=== PATIENT | female | born 1935 | race Caucasian/White ===

== ENCOUNTER 2016-10-13 09:50 | Outpatient (CLI) | payer MEDICARE, OTHER | END 2016-10-13 09:51 | disposition home or self-care (01) | DX: E03.9 Hypothyroidism, unspecified (principal) ==

== ENCOUNTER 2017-06-01 12:54 | Outpatient (CLI) | payer MEDICARE, OTHER ==
--- NOTE | 2017-06-01 13:52 | XRAY Report ---
TWO-VIEW LUMBAR SPINE: 06/01/2017 CLINICAL INDICATION: Back pain. FINDINGS: Frontal and lateral views of the lumbar spine demonstrate degenerative changes, with degen erative retrolisthesis of L1 on L2 by approximately 5 mm. Previous T11 vertebroplasty is noted. The re is no evidence of acute fracture or subluxation. IMPRESSION: DEGENERATIVE CHANGES, WITH DEGENERATIVE RETROLISTHESIS OF L1 ON L2. JOB #: [id number] EXT JOB #:[id number]
== END 2017-06-01 12:55 | disposition home or self-care (01) ==
LOC: DI 12:54
PROVIDERS: ATTEND Family Medicine
DX: M43.16 Spondylolisthesis, lumbar region (principal); Z98.890 Other specified postprocedural states
CPT/HCPCS: 72100

== ENCOUNTER 2017-06-20 08:00 | Outpatient (CLI) | payer MEDICARE, OTHER ==
[2017-06-20 19:57] LABS: THYROID STIMULATING HORMONE 0.32 uIU/mL (0.34-5.60)
== END 2017-06-20 08:01 | disposition home or self-care (01) ==
LOC: LAB.WCP 08:00
PROVIDERS: ATTEND Family Medicine
DX: E03.9 Hypothyroidism, unspecified (principal)
CPT/HCPCS: 36415; 84439; 84443; 84481

== ENCOUNTER 2017-06-23 13:44 | Outpatient (CLI) | payer MEDICARE, OTHER ==
--- NOTE | 2017-06-23 18:02 | MRI Report ---
EXAM: MRI LUMBAR SPINE WITHOUT CONTRAST EXAM DATE: 06/23/2017 03:08 PM. CLINICAL HISTORY: Low back pain for 3 months. Previous kyphoplasty at T11. COMPARISON: X-ray 06/01/2017. TECHNIQUE: Multiplanar, multisequence T1-weighted and fluid-sensitive sequences of the lumbar spine f rom T12 to S1 without contrast. Other: None. FINDINGS: Spinal Cord: The conus terminates at T12-L1. No signal abnormality in the visualized spinal cord. Alignment: 38 degree kyphosis as measured from top of T10 to top of L1. No significant scoliotic curv ature. Bone Marrow: Five rbk-jwk-hclhloe lumbar vertebral bodies are assumed. Severe 80% anterior T11 wedge compression deformity with kyphosis and previous kyphoplasty. Chronic with no marrow edema. Disk Levels/Facets: T10-T11: 0.3 cm T10 anterolisthesis on T11. Posterior superior corner of T11 indents the thecal sac a nd touches the cord with lower normal limit canal diameter. T11-T12: Mild disk narrowing. Mild facet arthropathy. No stenosis. T12-L1: Moderate disk narrowing and mild bulge with anterior osteophytes. Mild bilateral facet arthro natasha. No stenosis. L1-L2: Mild disk bulge. Mild bilateral facet arthropathy. Moderate bilateral foraminal stenoses. L2-L3: Minimal disk bulge. Moderate bilateral facet arthropathy. No stenosis. L3-L4: Minimal disk bulge. Moderate bilateral facet arthropathy with ligamentum flavum thickening. Na rrowing of the posterior lateral margins of the canal but preserved CSF around the nerve roots. Mild bilateral foraminal stenoses. L4-L5: Minimal disk bulge. Moderate bilateral facet arthropathy. No stenosis. Left foraminal/far late ral annular fissure. L5-S1: Disk unremarkable. Mild bilateral facet arthropathy. No stenosis. Musculature: Normal. No edema or fatty atrophy. Other: The visualized pelvic cavity is unremarkable. IMPRESSION: 1. Severe chronic T11 compression deformity with kyphoplasty and mild T10 anterolisthesis, causing lo wer normal limit canal at the T10-T11 disk level. 2. 38 degree kyphosis across the chronic compression fracture. 3. Multilevel degenerative disk disease and facet arthropathy. Comment: The following findings are so common in adults without low back pain that while we report th eir presence, they must be interpreted with caution and in the context of the clinical situation. (Re janey Morelos et al, Spine 2001) Prevalence of findings in patients without low back pain: Disk degeneration (any evidence): 92% Disk desiccation/T2 signal loss: 83% Disk height loss: 56% Disk bulge: 64% Disk protrusion: 32% Annular tear/high intensity zone: 38% [facility] Referring Provider Line: [phone] SITE ID: [id number]
== END 2017-06-23 13:45 | disposition home or self-care (01) ==
LOC: DI 13:44
PROVIDERS: ATTEND Family Medicine
DX: M47.896 Other spondylosis, lumbar region (principal); M51.36 Other intervertebral disc degeneration, lumbar region; M48.54XD Collapsed vertebra, not elsewhere classified, thoracic region, subsequent encounter for fracture with routine healing; M40.294 Other kyphosis, thoracic region; M43.14 Spondylolisthesis, thoracic region
CPT/HCPCS: 72148

== ENCOUNTER 2017-06-30 08:00 | Outpatient (CLI) | payer MEDICARE, OTHER | END 2017-06-30 08:01 | disposition home or self-care (01) | LOC: LAB.R 08:00 | PROVIDERS: ATTEND Physician Assistant Medical | DX: N39.0 Urinary tract infection, site not specified (principal) | CPT/HCPCS: 87086 ==

== ENCOUNTER 2017-08-02 11:40 | Outpatient (CLI) | payer MEDICARE, OTHER | END 2017-08-02 11:41 | disposition home or self-care (01) | LOC: LAB.R 11:40 | PROVIDERS: ATTEND Physician Assistant Medical | DX: N39.0 Urinary tract infection, site not specified (principal) | CPT/HCPCS: 87086 ==

== ENCOUNTER 2017-08-07 11:02 | Outpatient (CLI) | payer MEDICARE, OTHER ==
[2017-08-07 19:04] LABS: BASOPHILS % (AUTO) 0.7 %; EOSINOPHILS # (AUTO) 0.2 10^3/uL (0.0-0.7); EOSINOPHILS % (AUTO) 3.1 %; HCT - HEMATOCRIT 40.7 % (37.0-47.0); HGB - HEMOGLOBIN 13.5 g/dL (12.0-16.0); LYMPHOCYTES # (AUTO) 2.8 10^3/uL (1.5-3.5); LYMPHOCYTES % (AUTO) 43.6 %; MEAN CORPUSCULAR HEMOGLOBIN 31.2 pg (27.0-31.0); MEAN CORPUSCULAR HGB CONC 33.1 g/dL (32.0-36.0); MEAN CORPUSCULAR VOLUME 94.3 fL (81.0-99.0); MEAN PLATELET VOLUME 9.6 fL (7.9-10.8); MONOCYTES # (AUTO) 0.4 10^3/uL (0.0-1.0); MONOCYTES % (AUTO) 5.4 %; NEUTROPHILS # (AUTO) 3.1 10^3/uL (1.5-6.6); NEUTROPHILS % (AUTO) 47.2 %; NUCLEATED RED BLOOD CELLS AUTO 0.1 /100WBC; RED BLOOD COUNT 4.31 10^6/uL (4.20-5.40); RED CELL DISTRIBUTION WIDTH 13.8 % (12.0-15.0); UNCORRECTED WHITE BLOOD COUNT 6.5 x10^3/uL; WHITE BLOOD COUNT 6.5 x10^3/uL (4.8-10.8)
[2017-08-07 19:47] LABS: ALBUMIN/GLOBULIN RATIO 1.5 (1.0-2.2); BILIRUBIN,TOTAL 0.7 mg/dL (0.2-1.0); CALCIUM 10.4 mg/dL (8.5-10.3); CREATININE 0.7 mg/dL (0.4-1.0); POTASSIUM 4.1 mmol/L (3.5-5.0); TOTAL PROTEIN 7.1 g/dL (6.7-8.2)
== END 2017-08-07 11:03 | disposition home or self-care (01) ==
LOC: LAB.WCP 11:02
PROVIDERS: ATTEND Physician Assistant Medical
DX: M25.522 Pain in left elbow (principal); R10.31 Right lower quadrant pain
CPT/HCPCS: 36415; 80053; 85025; 87040; 87086

== ENCOUNTER 2017-08-09 19:26 | Outpatient (CLI) | payer MEDICARE, OTHER | END 2017-08-09 19:27 | disposition EMS.NT | LOC: EMS 19:26 | PROVIDERS: ATTEND Surgery | DX: S09.90XA Unspecified injury of head, initial encounter (principal); W01.198A Fall on same level from slipping, tripping and stumbling with subsequent striking against other object, initial encounter; Y92.009 Unspecified place in unspecified non-institutional (private) residence as the place of occurrence of the external cause ==

== ENCOUNTER 2017-08-09 22:51 | Outpatient (CLI) | payer MEDICARE, OTHER | END 2017-08-09 22:52 | disposition critical access hospital (66) | LOC: EMS 22:51 | PROVIDERS: ATTEND Surgery | DX: S01.81XA Laceration without foreign body of other part of head, initial encounter (principal); W19.XXXA Unspecified fall, initial encounter; Y92.009 Unspecified place in unspecified non-institutional (private) residence as the place of occurrence of the external cause; S09.90XA Unspecified injury of head, initial encounter; W01.198A Fall on same level from slipping, tripping and stumbling with subsequent striking against other object, initial encounter | CPT/HCPCS: A0425; A0429 ==

== ENCOUNTER 2017-08-09 23:08 | Emergency (ER) | payer MEDICARE, OTHER ==
--- NOTE | 2017-08-09 23:15 | ED Physician Documentation ---
PD HPI Fall - Stated complaint Stated Complaint: [facility] FALL/HEAD LAC - History obtained from History obtained from: Patient - History of Present Illness Mechanism of injury: Tripped Fall distance: Standing position Where injury occurred: Home Timing - onset: Enter time (19:30) Injury(ies) location: Head, Right Lower Extremity Pain level now: 4 Quality of pain: Pain Associated symptoms: No: LOC, AMS, Amnesia, Neck pain, Nausea / vomiting Symptoms improve with: Rest Worsens with: Movement, Palpation Contributing factors: No: Anticoagulated, Intoxicated Recently seen: Not recently seen - Additional information Additional information: tripped and fell at home tonight while walking in her house, struck head on piece of furniture. C/O mild right bony pelvic pain and scalp laceration. She initially declined transport to the hospital, but called 911 again due to recurrent bleeding from the scalp laceration. Review of Systems Eyes: denies: Loss of vision, Decreased vision Skin: reports: Laceration (s) Musculoskeletal: denies: Neck pain, Back pain, Extremity pain (points to medial/ proximal right thigh in area of right pelvic ring (not extremity pain per se)), Pain with weight bearing Neurologic: reports: Head injury. denies: Generalized weakness, Focal weakness , Numbness, Headache, LOC PD PAST MEDICAL HISTORY - Past Medical History Past Medical History: Yes Cardiovascular: Hypertension Endocrine/Autoimmune: HyPOthyroidism - Past Surgical History Ortho: Hip replacement (bilateral) - Present Medications Home Medications: Ambulatory Orders Medication Instructions Recorded Confirmed Atenolol [Tenormin] 50 mg PO DAILY 08/02/13 08/09/17 Thyroid [Gobler Thyroid] 65 mg PO DAILY 08/02/13 08/09/17 amLODIPine [Norvasc] 2.5 mg PO DAILY 08/02/13 08/09/17 Magnesium 30 mg PO UD 08/05/13 08/09/17 Resveratrol 50 mg PO UD 08/05/13 08/09/17 Ubidecarenone/Vitamin E Mixed 1 each PO DAILY 08/05/13 08/09/17 [Coq10 Sg 100 Softgel] hydrOXYzine PAMOATE [Vistaril] 25 mg PO HS PRN 08/05/13 08/09/17 - Allergies Allergies/Adverse Reactions: Allergies Allergy/AdvReac Type Severity Reaction Status Date / Time morphine Allergy Severe Hives Verified 08/10/17 00:30 Penicillins Allergy Severe Rash Verified 08/10/17 00:30 acetaminophen [From Vicodin] Allergy Unknown unknown Verified 08/10/17 00:30 adhesive Allergy Unknown unknown Verified 08/10/17 00:30 alendronate sodium Allergy Unknown unknown Verified 08/10/17 00:30 [From Fosamax] doxazosin Allergy Unknown unknown Verified 08/10/17 00:30 hydrocodone bitartrate * Allergy Unknown unknown Verified 08/10/17 00:30 [From Vicodin] Latex, Natural Rubber Allergy Unknown unknown Verified 08/10/17 00:30 risedronate sodium Allergy Unknown unknown Verified 08/10/17 00:30 [From Actonel] Sulfa (Sulfonamide Allergy Unknown Itching Verified 08/10/17 00:30 Antibiotics) lisinopril AdvReac Intermediate cough Verified 08/10/17 00:30 codeine [Codeine] AdvReac Unknown unknown Verified 08/10/17 00:30 lovastatin AdvReac Unknown Dizziness Verified 08/10/17 00:30 - Living Situation Living Arrangement: reports: At home PD ED PE NORMAL - Vitals Vital signs reviewed: Yes - General General: Alert and oriented X 3, No acute distress, Well developed/nourished - HEENT HEENT: PERRL, EOMI - Neck Neck: No bony TTP - Extremities Extremities: No tenderness to palpate, Normal ROM s pain, No edema - Neuro Neuro: Alert and oriented X 3, actuary 2-12 intact Eye Opening: Spontaneous Motor: Obeys Commands Verbal: Oriented GCS Score: 15 PD ED PE EXPANDED - HEENT HEENT Visual: 1 - laceration (4 cm length) Results - Vitals Vitals: Vital Signs - 24 hr 08/09/17 08/10/17 23:08 00:53 Temperature 36.2 C L Heart Rate 70 68 Respiratory 18 18 Rate Blood Pressure 172/92 H 146/61 H O2 Saturation 98 97 Oxygen O2 Source Room air - Rads (name of study) pelvis xray Radiology: Prelim report reviewed, See rad report Procedures - Laceration (location) Scalp Posterior Length in cm: 4 Wound type: Linear Neurovascular status: Sensory intact, Motor intact, Vascular intact Anesthesia: Lidocaine 1% Wound Preparation: Chlorhexadine, Irrigated copiously NS, Wound explored, To the base Skin layer closure: [place] Other: Patient tolerated well, No complications, Dressing applied, Tetanus booster given Complexity: Simple PD MEDICAL DECISION MAKING - ED course Complexity details: reviewed results, re-evaluated patient, considered differential, d/w patient Departure - Departure Disposition: 01 Home, Self Care Clinical Impression: Laceration of scalp Qualifiers: Encounter type: initial encounter Qualified Code(s): S01.01XA - Laceration without foreign body of scalp, initial encounter Fall Qualifiers: Encounter type: initial encounter Qualified Code(s): W19.XXXA - Unspecified fall, initial encounter Condition: Good Instructions: ED Mechanical Fall, ED Laceration Scalp Stitch Or Stap Follow-Up: [facility] [Provider Group] [facility] [Provider Group] Comments: Follow up with your primary care physician in 7-10 days for removal of the ramez. Discharge Date/Time: 08/10/17 01:13
[2017-08-09] MEDS ORDERED: LIDOCAINE 1% 2 ML VIAL ONE (23:48)
[2017-08-10] MEDS ORDERED: BACITRACIN OINT TOP ONE (00:16)
--- NOTE | 2017-08-10 00:16 | XRAY Preliminary Report ---
Exam: XR PELVIS 1 VIEW IMPRESSION: 1. Bilateral hip prostheses. No acute fracture or dislocation seen. [facility] SITE ID: [id number]
--- NOTE | 2017-08-10 00:18 | XRAY Report ---
EXAM: PELVIS RADIOGRAPHY EXAM DATE: 08/09/2017 11:56 PM. CLINICAL HISTORY: Fall, right pelvic pain. COMPARISON: 07/16/2015. TECHNIQUE: 1 view. FINDINGS: Bones: Osteopenia. Bilateral hip prostheses. No acute fracture seen. Joints: No dislocation. Soft Tissues: Grossly unremarkable. IMPRESSION: 1. Bilateral hip prostheses. No acute fracture or dislocation seen. [facility] Referring Provider Line: [phone] SITE ID: [id number]
[2017-08-10] MEDS ORDERED: TETANUS/DIPHTHERIA/PERTUSSIS 0.5 ML SYRINGE IM ONE (00:34)
[2017-08-10 00:53] VITALS: BP 146/61
== END 2017-08-10 01:13 | disposition home or self-care (01) ==
LOC: EDUNIT# → ED 23:08
DX: S01.01XA Laceration without foreign body of scalp, initial encounter (principal); W01.0XXA Fall on same level from slipping, tripping and stumbling without subsequent striking against object, initial encounter; W22.8XXA Striking against or struck by other objects, initial encounter; Y93.01 Activity, walking, marching and hiking; Y92.009 Unspecified place in unspecified non-institutional (private) residence as the place of occurrence of the external cause; R10.2 Pelvic and perineal pain; Z23 Encounter for immunization; I10 Essential (primary) hypertension; E03.9 Hypothyroidism, unspecified; Z96.643 Presence of artificial hip joint, bilateral
CPT/HCPCS: 12002; 72170; 90471; 90715; 99283; 99284; A9270

== ENCOUNTER 2017-08-18 11:17 | Outpatient (CLI) | payer MEDICARE, OTHER ==
--- NOTE | 2017-08-18 13:37 | Ultrasound Report ---
PELVIC ULTRASOUND: 08/18/2017 CLINICAL INDICATION: Right lower quadrant pain. TECHNIQUE: As requested, only transabdominal imaging was performed. FINDINGS: The uterus is anteverted, measuring 6.0 x 2.7 x 1.7 cm. The endometrial echo complex measu res 3 mm. No gross focal myometrial lesion is seen. The right ovary measures 1.8 x 0.9 x 0.8 cm, and appears unremarkable. The left ovary was not confidently visualized. No free fluid is present. IMPRESSION: NO EVIDENCE OF RIGHT ADNEXAL MASS. JOB #: [id number] EXT JOB #:[id number]
== END 2017-08-18 11:18 | disposition home or self-care (01) ==
LOC: DI 11:17
PROVIDERS: ATTEND Physician Assistant Medical
DX: R10.31 Right lower quadrant pain (principal)
CPT/HCPCS: 76856

== ENCOUNTER 2017-10-17 12:41 | Outpatient (CLI) | payer MEDICARE, OTHER ==
--- NOTE | 2017-10-17 16:46 | MRI Report ---
EXAM: MRI LUMBAR SPINE WITHOUT CONTRAST EXAM DATE: 10/17/2017 02:33 PM. CLINICAL HISTORY: Thoracolumbar vertebral compression fracture. COMPARISON: Prior thoracolumbar spine x-ray 09/04/2017. Prior MRI 06/23/2017. TECHNIQUE: Multiplanar, multisequence T1-weighted and fluid-sensitive sequences of the lumbar spine f rom T12 to S1 without contrast. Other: None. FINDINGS: Spinal Cord: The conus terminates at T12-L1. The conus medullaris and cauda equina are unremarkable. Alignment: There is a 19 degree dextroscoliosis centered on T11. There is sharp exaggeration of the t horacic kyphosis at T11. Bone Marrow: Five dqb-yvl-suywocv lumbar vertebral bodies are assumed. Old fracture at T11 with evide nce of prior vertebroplasty. There is vertebra plana exaggerating the thoracolumbar kyphosis. Acute 2 -column fracture of the superior endplate of L3 with greater than 50% loss of vertebral body height. Marrow edema is noted throughout the L3 vertebral body. The posterior elements appear intact. Retropu lsed fragments cause mild narrowing of the spinal canal. 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 Disk Levels/Facets: T12-L1: There is mild effacement of the ventral surface of the sac and cord at T11-T12. There is a sm all posterior disk bulge causing mild canal narrowing at T12-L1. There is minimal foraminal narrowing . L1-L2: There is a broad-based posterior disk bulge with facet joint osteoarthritis and ligamentum fla vum redundancy causing mild canal narrowing. There is mild bilateral foraminal narrowing. No signific ant change since the prior study. L2-L3: There is a broad-based posterior disk bulge with moderate facet joint osteoarthritis and ligam entum flavum redundancy causing mild canal narrowing. Mild bilateral foraminal narrowing. No signific ant change since the prior study. L3-L4: There is moderate facet joint osteoarthritis and ligamentum flavum redundancy causing mild can al narrowing. There is mild bilateral foraminal narrowing. No significant change since the prior stud y. L4-L5: Moderate bilateral facet joint osteoarthritis with facet joint effusions and ligamentum flavum redundancy causing minimal canal narrowing. There is mild left and minimal right foraminal narrowing . L5-S1: Mild bilateral facet joint osteoarthritis. The canal and foramina are patent. Musculature: Normal. No edema or fatty atrophy. Other: The partially visualized retroperitoneum is unremarkable. IMPRESSION: 1. Acute 2-column fracture of the superior endplate of L3 with greater than 50% loss of vertebral bod y height. Retropulsed fragments cause mild canal narrowing. 2. Moderate, multilevel degenerative change not significantly altered since the prior study. 3. Vertebra plana at T11 with evidence of prior vertebroplasty. 4. 19 degree dextroscoliosis centered on T11. Sharp exaggeration of the thoracolumbar kyphosis at thi s level. Comment: The following findings are so common in adults without low back pain that while we report th eir presence, they must be interpreted with caution and in the context of the clinical situation. (Re janey Morelos et al, Spine 2001) Prevalence of findings in patients without low back pain: Disk degeneration (any evidence): 92% Disk desiccation/T2 signal loss: 83% Disk height loss: 56% Disk bulge: 64% Disk protrusion: 32% Annular tear/high intensity zone: 38% [facility] Referring Provider Line: [phone] SITE ID: [id number]
== END 2017-10-17 12:42 | disposition home or self-care (01) ==
LOC: DI 12:41
PROVIDERS: ATTEND Physician Assistant Medical
DX: S32.030A Wedge compression fracture of third lumbar vertebra, initial encounter for closed fracture (principal); M51.34 Other intervertebral disc degeneration, thoracic region; M47.896 Other spondylosis, lumbar region; M40.294 Other kyphosis, thoracic region; M41.84 Other forms of scoliosis, thoracic region; R55 Syncope and collapse
CPT/HCPCS: 72148; 93306

== ENCOUNTER 2017-12-25 08:00 | Outpatient (CLI) | payer MEDICARE, OTHER ==
[2017-12-25 13:21] LABS: HEMOGLOBIN A1C 0.59 g/dL; HEMOGLOBIN A1C % 5.5 % (4.6-6.2)
[2017-12-25 13:24] LABS: ALBUMIN 4.3 g/dL (3.2-5.5); ALBUMIN/GLOBULIN RATIO 1.6 (1.0-2.2); ALKALINE PHOSPHATASE 73 IU/L (42-121); ALT ALANINE AMINOTRANSFERASE 29 IU/L (10-60); AST ASPARTATE AMINOTRANSFERASE 33 IU/L (10-42); BILIRUBIN,TOTAL 0.8 mg/dL (0.2-1.0); BUN - BLOOD UREA NITROGEN 19 mg/dL (6-20); CALCIUM 10.1 mg/dL (8.5-10.3); CARBON DIOXIDE - CO2 31 mmol/L (21-32); CHLORIDE 104 mmol/L (101-111); CHOL/HDL RATIO 3.9 (<4.4); CHOLESTEROL 244 mg/dL; CREATININE 0.8 mg/dL (0.4-1.0); GFR - MDRD 69 (>89); GLUCOSE 90 mg/dL (70-100); HDL CHOLESTEROL 63 mg/dL; LDL CHOLESTEROL,CALCULATED 158 mg/dL; LDL/HDL RATIO 2.5 (<4.4); SODIUM 140 mmol/L (135-145); VLDL CHOLESTEROL 23 mg/dL
[2017-12-25 14:47] LABS: FREE T4 (FREE THYROXINE) 0.44 ng/dL (0.58-1.64)
[2017-12-25 14:55] LABS: THYROID STIMULATING HORMONE 54.32 uIU/mL (0.34-5.60)
== END 2017-12-25 08:01 | disposition home or self-care (01) ==
LOC: LAB.WCP 08:00
PROVIDERS: ATTEND Physician Assistant Medical
DX: E78.5 Hyperlipidemia, unspecified (principal); R73.01 Impaired fasting glucose; E03.9 Hypothyroidism, unspecified
CPT/HCPCS: 36415; 80053; 80061; 83036; 83721; 84439; 84443

== ENCOUNTER 2017-12-29 15:27 | Outpatient (CLI) | payer MEDICARE, OTHER ==
--- NOTE | 2018-01-01 11:11 | Mammography Report ---
DIGITAL SCREENING MAMMOGRAM: 12/29/2017 CLINICAL INDICATION: An 82-year-old with family history of breast cancer for screening. COMPARISON: 07/2016, 09/2015, 06/2014, 04/2013, 04/2012, 04/2011, 11/2010, 03/2010. TECHNIQUE: Routine CC and MLO projections were obtained of the breasts. FINDINGS: The breasts demonstrate scattered fibroglandular densities bilaterally. Coarse and punctate, typically benign calcifications are present. No suspicious masses, clustered microcalcifications, or regions of architectural distortion are identified. IMPRESSION: BENIGN FINDINGS. RECOMMENDATION: Routine annual screening unless otherwise clinically indicated. BIRADS CATEGORY 2 - BENIGN FINDINGS. STANDARD QUALIFYING STATEMENTS: 1. This examination was reviewed with the aid of Computer-Aided Detection (CAD). 2. A negative or benign imaging report should not delay biopsy if clinically suspicious findings are present. Consider surgical consultation if warranted. More than 5% of cancers are not identified by imaging. 3. Dense breasts may obscure an underlying neoplasm. TD: 01/01/2018 11:10
== END 2017-12-29 15:28 | disposition home or self-care (01) ==
LOC: DI.N 15:27
PROVIDERS: ATTEND Physician Assistant Medical
DX: Z12.31 Encounter for screening mammogram for malignant neoplasm of breast (principal); Z80.3 Family history of malignant neoplasm of breast
CPT/HCPCS: 77067

== ENCOUNTER 2018-01-16 08:00 | Outpatient (CLI) | payer MEDICARE, OTHER ==
[2018-01-16 13:52] LABS: THYROID STIMULATING HORMONE 9.26 uIU/mL (0.34-5.60)
[2018-01-16 14:58] LABS: FREE T4 (FREE THYROXINE) 0.71 ng/dL (0.58-1.64)
== END 2018-01-16 08:01 | disposition home or self-care (01) ==
LOC: LAB.WCP 08:00
PROVIDERS: ATTEND Physician Assistant Medical
DX: E03.9 Hypothyroidism, unspecified (principal)
CPT/HCPCS: 36415; 84439; 84443

== ENCOUNTER 2018-01-17 10:52 | Day surgery (SDC) | payer MEDICARE, OTHER ==
[2018-01-17] MEDS ORDERED: LACTATED RINGERS 1,000 ML IV ONE (11:47)
[2018-01-17] MEDS ORDERED: fentaNYL 250 MCG/5 ML VIAL IVP ONE (12:05)
[2018-01-17] MEDS ORDERED: MIDAZOLAM 2 MG/2 ML VIAL IVP ONE (12:05)
[2018-01-17 13:07] VITALS: BP 105/46
== END 2018-01-17 10:53 | disposition home or self-care (01) ==
LOC: SDS 10:52
PROVIDERS: ATTEND Internal Medicine
PROC: 0DJD8ZZ Inspection of Lower Intestinal Tract, Via Natural or Artificial Opening Endoscopic (ICD-10-PCS; principal; 2018-01-17 12:00)
DX: Z12.11 Encounter for screening for malignant neoplasm of colon (principal); Z86.010 Personal history of colon polyps; I10 Essential (primary) hypertension; E03.9 Hypothyroidism, unspecified; K21.9 Gastro-esophageal reflux disease without esophagitis
CPT/HCPCS: G0105; J3010; J7120

== ENCOUNTER 2018-07-05 09:14 | Outpatient (CLI) | payer MEDICARE, OTHER ==
[2018-07-05 12:35] LABS: CALCIUM 10.5 mg/dL (8.5-10.3); CARBON DIOXIDE - CO2 30 mmol/L (21-32); CHLORIDE 104 mmol/L (101-111); GLUCOSE 101 mg/dL (70-100); SODIUM 142 mmol/L (135-145)
[2018-07-05 12:55] LABS: THYROID STIMULATING HORMONE 16.65 uIU/mL (0.34-5.60)
[2018-07-05 13:18] LABS: ALBUMIN 4.2 g/dL (3.2-5.5); ALBUMIN/GLOBULIN RATIO 1.4 (1.0-2.2); ALKALINE PHOSPHATASE 59 IU/L (42-121); ALT ALANINE AMINOTRANSFERASE 40 IU/L (10-60); AST ASPARTATE AMINOTRANSFERASE 41 IU/L (10-42); BILIRUBIN,TOTAL 0.7 mg/dL (0.2-1.0); BUN - BLOOD UREA NITROGEN 14 mg/dL (6-20); CHOL/HDL RATIO 3.6 (<4.4); CHOLESTEROL 230 mg/dL; CREATININE 0.8 mg/dL (0.4-1.0); GFR - MDRD 69 (>89); HDL CHOLESTEROL 64 mg/dL; LDL CHOLESTEROL,CALCULATED 143 mg/dL; LDL/HDL RATIO 2.2 (<4.4); TOTAL PROTEIN 7.1 g/dL (6.7-8.2); VLDL CHOLESTEROL 23 mg/dL
[2018-07-05 13:33] LABS: FREE T4 (FREE THYROXINE) 0.6 ng/dL (0.58-1.64)
== END 2018-07-05 09:15 | disposition home or self-care (01) ==
LOC: LAB.WCP 09:14
PROVIDERS: ATTEND Physician Assistant Medical
DX: E78.5 Hyperlipidemia, unspecified (principal); E03.9 Hypothyroidism, unspecified
CPT/HCPCS: 36415; 80053; 80061; 83721; 84439; 84443

== ENCOUNTER 2018-09-03 10:05 | Outpatient (CLI) | payer MEDICARE, OTHER | END 2018-09-03 23:59 | disposition home or self-care (01) | LOC: LAB.WCP 10:05 | PROVIDERS: ATTEND Physician Assistant Medical | DX: E03.9 Hypothyroidism, unspecified (principal) | CPT/HCPCS: 36415; 84443 ==

== ENCOUNTER 2018-10-25 09:33 | Outpatient (CLI) | payer MEDICARE, OTHER ==
--- NOTE | 2018-10-25 16:32 | MRI Report ---
Reason: OSTEOPOROSIS,SENILE,WEDGE COMPRESSION FRACTURE OF Procedure Date: 10/25/2018 Accession Number: [id number] / [id number] Procedure: MRI - Thoracic Spine W/O CPT Code: FULL RESULT: EXAM: MRI THORACIC SPINE WITHOUT CONTRAST. EXAM DATE: 10/25/2018 10:02 AM. CLINICAL HISTORY: Osteoporosis, senile, wedge compression fracture. COMPARISONS: Thoracic spine MRI from 04/23/2010. TECHNIQUE: Multiplanar, multisequence T1-weighted and fluid-sensitive sequences of the thoracic spine from C7 to L1 without contrast. Other: None. FINDINGS: Spinal Canal: No signal abnormality in the visualized spinal cord. Alignment: Minimal grade 1 anterolisthesis at C7-T1, T2-T3, T3-T4 by approximately 1-2 mm. Increased kyphosis at the T11 level due to the chronic T11 compression fracture. Bone Marrow: Severe chronic compression fracture of the T11 vertebral body. Slight posterior superior retropulsion of the T11 vertebral body into the anterior aspect of the spinal canal by approximately 5 mm. Mild to moderate canal stenosis at the upper T11 level. Hypointense material within the T11 vertebral body from previous vertebroplasty. No new fractures. No bone lesions. Disk Levels/Facets: C7-T1: Facet arthropathy. Mild foraminal stenoses. T1-T2: Facet arthropathy. Mild to moderate foraminal stenosis. T2-T3: Facet arthropathy. Mild foraminal stenoses. T3-T4: Facet arthropathy. No stenoses. T4-T5: Facet arthropathy. No stenoses. T5-T6: Facet arthropathy. No stenoses. T6-T7: Facet arthropathy. No stenoses. T7-T8: Small posterior central disk protrusion. Facet arthropathy. Minimal canal narrowing. Mild right foraminal stenosis. No change. T8-T9: Small posterior central to right paracentral disk protrusion. Facet arthropathy. Minimal canal narrowing. No foraminal stenoses. T9-T10: Facet arthropathy. Mild foraminal stenosis. No change. T10-T11: Bony fusion at the facet joints. Mild foraminal stenoses. Mild to moderate canal stenosis. No change. T11-T12: Unremarkable. T12-L1: Unremarkable. Musculature: Normal. No edema or fatty atrophy. Other: The visualized lungs, mediastinum, and abdominal cavity are unremarkable. IMPRESSION: 1. Severe, chronic compression fracture of the T11 vertebral body. Previous T11 vertebroplasty. No change since the previous study. 2. No acute fracture. 3. Multilevel facet arthropathy. 4. Small disk protrusions at T7-T8 and T8-T9. 5. Mild to moderate canal stenosis at the upper T11 level due to the T11 compression fracture. [facility]
--- NOTE | 2018-10-25 16:44 | MRI Report ---
Reason: OSTEOPOROSIS,SENILE,WEDGE COMPRESSION FRACTURE OF Procedure Date: 10/25/2018 Accession Number: [id number] / [id number] Procedure: MRI - Lumbar Spine W/O CPT Code: FULL RESULT: EXAM: MRI LUMBAR SPINE WITHOUT CONTRAST EXAM DATE: 10/25/2018 11:14 AM. CLINICAL HISTORY: Osteoporosis, senile, wedge compression fracture. COMPARISON: Lumbar spine MRI from 10/17/2017. TECHNIQUE: Multiplanar, multisequence T1-weighted and fluid-sensitive sequences of the lumbar spine from T12 to S1 without contrast. Other: None. FINDINGS: Spinal Canal: The conus terminates at T12-L1. The conus medullaris and cauda equina are unremarkable. Alignment: No scoliosis or spondylolisthesis. Bone Marrow: Five ppi-jij-gotjpyj lumbar vertebral bodies are assumed. Chronic, moderate compression fracture of the L3 vertebral body. Slight retropulsion of the posterior superior aspect of L3 vertebral body into the anterior aspect of the spinal canal by approximately 3 mm. Mild canal stenosis at the upper L3 level. Mild chronic compression fracture involving the superior aspect of L1 vertebral body which is unchanged. Schmorl's nodes at the T12 and L1 superior endplates. No acute fracture or bone lesions. Disk Levels/Facets: L5-S1: Mild to moderate left and moderate right facet arthropathy. No stenoses. No change. L4-L5: Mild to moderate facet arthropathy. No stenoses. No change. L3-L4: Severe ligamentum flavum thickening. Mild left facet arthropathy. Mild to moderate canal stenosis. Mild foraminal stenoses. No change. L2-L3: Small disk bulge. Severe ligamentum flavum thickening. Mild to moderate canal stenosis. Mild to moderate foraminal stenoses. No change. L1-L2: Small disk bulge. Severe ligamentum flavum thickening. Mild facet arthropathy. Mild canal stenosis. Mild to moderate right and mild left foraminal stenoses. No change. Musculature: Mild to moderate fatty atrophy of the posterior paraspinal muscles. Other: The partially visualized retroperitoneum is unremarkable. IMPRESSION: 1. Chronic compression fractures at the L1 and L3 vertebral bodies. No acute fracture. 2. Multilevel facet arthropathy and ligamentum flavum thickening. There are varying degrees of stenoses. No change since the previous study. Comment: The following findings are so common in adults without low back pain that while we report their presence, they must be interpreted with caution and in the context of the clinical situation. (Reference Florenciok et al, Spine 2001) Prevalence of findings in patients without low back pain: Disk degeneration (any evidence): 92% Disk desiccation/T2 signal loss: 83% Disk height loss: 56% Disk bulge: 64% Disk protrusion: 32% Annular tear/high intensity zone: 38% [facility]
--- NOTE | 2018-10-26 09:58 | DEXA Report ---
Reason: OSTEOPOROSIS,SENILE,WEDGE COMPRESSION FRACTURE OF Procedure Date: 10/25/2018 Accession Number: [id number] / [id number] Procedure: DEX - Dexa Spine and/or Hip CPT Code: FULL RESULT: EXAM: Dexa Spine and/or Hip, Dexa Forearm DATE: 10/25/2018 11:55 AM CLINICAL HISTORY: OSTEOPOROSIS,SENILE,WEDGE COMPRESSION FRACTURE OF TECHNIQUE: Dual energy x-ray absorptiometry (DXA) was performed on a [employer] System. Regions measured are the AP Spine, femoral neck, and if needed forearm. COMPARISON: None. In accordance with the International Society for Clinical Densitometry (ISCD) guidelines, data from previous exams may be reanalyzed using current recommendations and techniques. This is done to allow a more accurate basis for comparison with the current study. FINDINGS: The data for the lumbar spine is as follows: BMD (g/cm/cm) T-SCORE Z-SCORE REGION L1 0.868 -2.2 -0.2 L2 0.880 -2.7 -0.7 L3 0.841 -3.0 -1.0 L4 0.811 -3.2 -1.2 TOTAL 0.848 -2.8 -0.8 NOTE: All evaluable vertebrae are used for classification The data for the left forearm is as follows: BMD (g/cm/cm) T-SCORE Z-SCORE REGION 1/3 0.342 -6.1 -3.0 NOTE: The 33% radius of the nondominant forearm is used for classification. IMPRESSION: THE WHO CLASSIFICATION BASED ON THE INTERNATIONAL REFERENCE STANDARD IS OSTEOPOROSIS. THE FRACTURE RISK IS HIGH. RECOMMENDATION: Patients with diagnosis of osteoporosis or osteopenia should have regular bone mineral density assessment. For those eligible for Medicare, routine testing is allowed once every 2 years. Testing frequency can be increased for patients who have rapidly progressing disease or for those who are receiving medical therapy to restore bone mass. COMMENT: World Health Organization (WHO) definitions for osteoporosis and osteopenia: NORMAL BMD: T-score at -1.0 or higher, fracture risk is low OSTEOPENIA BMD: T-score between -1.0 and -2.5, fracture risk is increased. OSTEOPOROSIS BMD: T-score at -2.5 or lower, fracture risk is high. National Osteoporosis Foundation recommends: 1. Obtain adequate dietary calcium (at least 1200 mg per day) and vitamin D (400-800 international units per day). 2. Participate, as appropriate, in regular weightbearing and muscle-strengthening exercise. 3. Avoid tobacco use and reduce alcohol and caffeine intake. 4. For more detailed information see the website at www.NOF.org.
== END 2018-10-25 09:34 | disposition home or self-care (01) ==
LOC: DI 09:33
PROVIDERS: ATTEND Family Medicine
DX: M81.0 Age-related osteoporosis without current pathological fracture (principal); S22.080S Wedge compression fracture of T11-T12 vertebra, sequela; M48.56XS Collapsed vertebra, not elsewhere classified, lumbar region, sequela of fracture; M51.24 Other intervertebral disc displacement, thoracic region; M48.04 Spinal stenosis, thoracic region; M51.26 Other intervertebral disc displacement, lumbar region; M48.061 Spinal stenosis, lumbar region without neurogenic claudication
CPT/HCPCS: 72146; 72148; 77080; 77081

== ENCOUNTER 2018-11-05 08:00 | Outpatient (CLI) | payer MEDICARE, OTHER ==
[2018-11-05 13:08] LABS: THYROID STIMULATING HORMONE < 0.08 uIU/mL (0.34-5.60)
[2018-11-05 14:41] LABS: FREE T4 (FREE THYROXINE) 1.13 ng/dL (0.58-1.64)
== END 2018-11-05 23:59 | disposition home or self-care (01) ==
LOC: LAB.WCP 08:00
PROVIDERS: ATTEND Physician Assistant Medical
DX: E03.9 Hypothyroidism, unspecified (principal)
CPT/HCPCS: 36415; 84439; 84443

== ENCOUNTER 2018-11-07 15:45 | Outpatient (CLI) | payer MEDICARE, OTHER ==
[2018-11-07 19:54] LABS: RHEUMATOID FACTOR NEGATIVE (Negative)
== END 2018-11-07 23:59 | disposition home or self-care (01) ==
LOC: LAB.WCP 15:45
PROVIDERS: ATTEND Physician Assistant Medical
DX: M25.50 Pain in unspecified joint (principal)
CPT/HCPCS: 36415; 85651; 86038; 86140; 86430

== ENCOUNTER 2019-02-08 08:00 | Outpatient (CLI) | payer MEDICARE, OTHER ==
[2019-02-08 19:23] LABS: THYROID STIMULATING HORMONE < 0.08 uIU/mL (0.34-5.60)
== END 2019-02-08 23:59 | disposition home or self-care (01) ==
LOC: LAB.WCP 08:00
PROVIDERS: ATTEND Nurse Practitioner
DX: E03.9 Hypothyroidism, unspecified (principal)
CPT/HCPCS: 36415; 84439; 84443

== ENCOUNTER 2019-04-25 10:15 | Outpatient (CLI) | payer MEDICARE, OTHER ==
--- NOTE | 2019-04-26 09:21 | Mammography Report ---
Reason: SCREENING MAMMO Procedure Date: 04/25/2019 Accession Number: [id number] / [id number] Procedure: [facility] - Screening Mammo w/Cayetano CPT Code: FULL RESULT: EXAM: Screening Mammo w/Cayetano DATE: 04/25/2019 10:48 AM CLINICAL HISTORY: Screening encounter. Family history of breast cancer in a sister at the age of 44. TECHNIQUE: (B) - Bilateral CC and MLO views were obtained. A left laterally exaggerated CC view is obtained. COMPARISON: 12/29/2017 through 05/02/2013. PARENCHYMAL PATTERN: (A) - The breast(s) demonstrate(s) scattered fibroglandular densities. FINDINGS: There are no suspicious masses, calcifications, or areas of distortion. IMPRESSION: Negative examination. BI-RADS category 1. RECOMMENDATION: (ANNUAL) - Recommend routine annual screening mammography. BI-RADS CATEGORY: (1) - Negative. STANDARD QUALIFYING STATEMENTS: 1. This examination was not reviewed with the aid of Computer-Aided Detection (CAD). 2. A negative or benign imaging report should not preclude biopsy if clinically suspicious findings are present. 3. Dense breasts may obscure an underlying neoplasm. 4. This examination was reviewed with the aid of 3D breast imaging (tomosynthesis).
== END 2019-04-25 10:16 | disposition home or self-care (01) ==
LOC: DI 10:15
DX: Z12.31 Encounter for screening mammogram for malignant neoplasm of breast (principal); Z80.3 Family history of malignant neoplasm of breast
CPT/HCPCS: 77063; 77067

== ENCOUNTER 2019-06-24 12:54 | Outpatient (CLI) | payer MEDICARE, OTHER | END 2019-06-24 12:55 | disposition critical access hospital (66) | LOC: EMS 12:54 | PROVIDERS: ATTEND Surgery | DX: R10.12 Left upper quadrant pain (principal); M79.622 Pain in left upper arm; M25.512 Pain in left shoulder | CPT/HCPCS: A0425; A0429 ==

== ENCOUNTER 2019-06-24 13:11 | Emergency (ER) | payer MEDICARE, OTHER ==
--- NOTE | 2019-06-24 13:48 | ED Physician Documentation ---
PD HPI BACK PAIN - Stated complaint Stated Complaint: L BACK PX - Chief complaint Chief Complaint: Abd Pain - History obtained from History obtained from: Patient - History of Present Illness Timing - onset: How many months ago Timing - duration: Months (6) Timing - details: Gradual onset, Now resolved Pain level max: 10 Location: Mid, Left Quality: Pain Associated symptoms: No: Fever, Weakness, Numbness, Incontinent of urine, Unable to urinate, Hematuria Improves with: Other (Laying flat) Recently seen: Not recently seen - Additional information Additional information: This is an 83-year-old woman who for the past 6 months has been experiencing a "pressure" sensation that begins along the left anterior costal margin and wraps around her back. She describes it as intense, burning and stinging. Normally when it starts she will sit in her "comfy chair" and it will feel better or she will lay down and the pain will completely resolve. Today however she was sitting and knitting when the pain started and it got so intense was up to an 8 to a 10 out of 10. It lasted for approximately an hour and a half before she laid down and the pain completely resolved. She called her primary care provider's office who recommended she come into the emergency department to be evaluated for it. She did not take anything for the pain. She complains of chronic back pains at "T11 and "L3 having had a kyphoplasty done at T11 years ago. She also reports a "whole bunch" of thoracic compression fractures. She had some pain associated with this down the left arm from the shoulder to the elbow but she was knitting at the time and she has a prosthetic left elbow show she thinks that may contribute some to that shoulder pain. She did not feel short of breath, palpitations, experienced nausea vomiting or diarrhea. She is had no dysuria or seeing blood in the urine. She has had a diminished appetite and has lost 7 pounds in about the past month. She is at an assisted living and says the food there often is not appetizing. Patient Googled what symptoms of spleen issue would be and she had 7 of the 8 symptoms so she became extremely concerned that this was some how related to her spleen. Review of Systems Constitutional: denies: Fever Cardiac: denies: Chest pain / pressure, Palpitations, Pedal edema Respiratory: denies: Dyspnea, Cough GI: denies: Abdominal Pain, Nausea, Vomiting, Diarrhea : denies: Dysuria, Frequency Skin: denies: Rash Musculoskeletal: reports: Back pain Neurologic: denies: Generalized weakness, Focal weakness, Numbness, Near syncope PD PAST MEDICAL HISTORY - Past Medical History Cardiovascular: Hypertension Respiratory: None Endocrine/Autoimmune: HyPOthyroidism GI: None, GERD : None Psych: None Musculoskeletal: None Derm: None - Past Surgical History Past Surgical History: Yes General: Colonoscopy, EGD Ortho: Hip replacement HEENT: Tonsil/Adenoidectomy - Present Medications Home Medications: Ambulatory Orders Medication Instructions Recorded Confirmed Atenolol [Tenormin] 50 mg PO DAILY 08/02/13 11/09/18 Thyroid [[place] Thyroid] 105 mg PO DAILY 08/02/13 11/09/18 amLODIPine [Norvasc] 5 mg PO BID 08/02/13 11/09/18 Ubidecarenone/Vitamin E Mixed 2 cap PO BID 08/05/13 11/09/18 [Coq10 Sg 100 Softgel] hydrOXYzine PAMOATE [Vistaril] 25 mg PO HS PRN 08/05/13 11/09/18 Aspirin [Aspirin EC] 81 mg PO DAILY 01/17/18 11/09/18 Ibuprofen 200 mg PO BID 01/17/18 11/09/18 Naproxen [EC-Naproxen] 375 mg PO DAILY #30 tablet. 06/24/19 - Allergies Allergies/Adverse Reactions: Allergies Allergy/AdvReac Type Severity Reaction Status Date / Time morphine Allergy Severe Hives Verified 06/24/19 13:15 Penicillins Allergy Severe Rash Verified 06/24/19 13:15 adhesive Allergy Unknown unknown Verified 06/24/19 13:15 alendronate sodium Allergy Unknown unknown Verified 06/24/19 13:15 [From Fosamax] doxazosin Allergy Unknown unknown Verified 06/24/19 13:15 hydrocodone bitartrate * Allergy Unknown unknown Verified 06/24/19 13:15 [From Vicodin] Latex, Natural Rubber Allergy Unknown unknown Verified 06/24/19 13:15 Sulfa (Sulfonamide Allergy Unknown Itching Verified 06/24/19 13:15 Antibiotics) lisinopril AdvReac Intermediate cough Verified 06/24/19 13:15 codeine [Codeine] AdvReac Unknown unknown Verified 06/24/19 13:15 lovastatin AdvReac Unknown Dizziness Verified 06/24/19 13:15 - Social History Does the pt smoke?: No Smoking Status: Never smoker Does the pt drink ETOH?: Yes Does the pt have substance abuse?: No - Immunizations Immunizations are current?: No Immunizations: TDAP current <10years PD ED PE NORMAL - Vitals Vital signs reviewed: Yes - General General: Alert and oriented X 3, No acute distress, Well developed/nourished - HEENT HEENT: Atraumatic, PERRL - Cardiac Cardiac: RRR, No murmur - Respiratory Respiratory: No respiratory distress, Clear bilaterally - Abdomen Abdomen: Normal bowel sounds, Non tender, Non distended, No organomegaly, Other (Nontender to palpation along the costal margin.) - Back Back: No CVA TTP, Other (There is significant kyphosis Of the thoracic spine.) - Derm Derm: Normal color, Warm and dry, No rash - Neuro Neuro: Alert and oriented X 3, No motor deficit, No sensory deficit, Normal speech - Psych Psych: Normal mood, Normal affect Results - Vitals Vitals: Vital Signs - 24 hr 06/24/19 06/24/19 13:13 14:04 Temperature 36.6 C 36.5 C Heart Rate 70 67 Respiratory 15 16 Rate Blood Pressure 143/54 H 174/81 H O2 Saturation 97 98 Oxygen O2 Source Room air - Labs Labs: Laboratory Tests 06/24/19 06/24/19 06/24/19 14:01 14:01 14:10 WBC 7.1 RBC 4.56 Hgb 14.3 Hct 42.6 MCV 93.4 MCH 31.4 H MCHC 33.6 RDW 12.8 Plt Count 203 MPV 10.4 Neut # (Auto) 3.6 Lymph # (Auto) 2.6 [place] # (Auto) 0.6 Eos # (Auto) 0.3 Baso # (Auto) 0.0 Absolute Nucleated RBC 0.00 Nucleated RBC % 0.0 Sodium 143 Potassium 3.6 Chloride 104 Carbon Dioxide 28 Anion Gap 11.0 BUN 19 Creatinine 0.8 Estimated GFR (MDRD) 68 L Glucose 97 Calcium 11.1 H Urine Color YELLOW Urine Clarity HAZY Urine pH 8.0 H Ur Specific [place] 1.010 Urine Protein NEGATIVE Urine Glucose (UA) NEGATIVE Urine Ketones TRACE Urine Occult Blood NEGATIVE Urine Nitrite NEGATIVE Urine Bilirubin NEGATIVE Urine Urobilinogen 0.2 (NORMAL) Ur Leukocyte Esterase SMALL H Urine RBC None Seen Urine WBC 0-3 Ur Squamous Epith Cells MOD Squamous H Amorphous Sediment Marked Urine Bacteria Rare Ur Microscopic Review INDICATED Urine Culture Comments NOT INDICATED PD MEDICAL DECISION MAKING - ED course Complexity details: reviewed results, re-evaluated patient, d/w patient ED course: Patient remained pain-free here in the emergency department. CBC and BMP were normal. Urinalysis looked contaminated with squamous epithelium, positive sm LE but only 0-3 WBCs. I reviewed her thoracic MRI dated October 2018 and she had multiple degenerative changes in the lower thoracic spine T7-T11. Discussed with the patient the findings of the MRI and my suspicion that this is nerve impingement and may also be related to some shifting of the costo chondral joints due to her developing and worsening kyphosis. 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 She certainly does not want to spend the rest of her life laying down to avoid pain. Trial naproxen prescription daily with breakfast and have encouraged her to follow-up with her primary care provider and to consider physical therapy to help alleviate the pain even if there are just doing some massage and stretching with her. Departure - Departure Disposition: 01 Home, Self Care Clinical Impression: Thoracic radiculopathy Condition: Good Instructions: ED Degenerative Joint Disease Follow-Up: Oliva Stern PA-C [Primary Care Provider] - Prescriptions: Naproxen [EC-Naproxen] 375 mg PO DAILY #30 tablet. Comments: Take the naproxen with food each morning to see if that helps alleviate the pain. Follow-up with your primary care provider for consideration of some physical therapy even if it is just for some massage and stretching. Follow-up with your primary care provider for further pain management.
[2019-06-24 14:10] LABS: BASOPHILS % (AUTO) 0.6 %; EOSINOPHILS # (AUTO) 0.3 10^3/uL (0.0-0.7); EOSINOPHILS % (AUTO) 3.7 %; HGB - HEMOGLOBIN 14.3 g/dL (12.0-16.0); LYMPHOCYTES # (AUTO) 2.6 10^3/uL (1.5-3.5); MEAN CORPUSCULAR HEMOGLOBIN 31.4 pg (27.0-31.0); MEAN CORPUSCULAR HGB CONC 33.6 g/dL (32.0-36.0); MEAN CORPUSCULAR VOLUME 93.4 fL (81.0-99.0); MEAN PLATELET VOLUME 10.4 fL (7.9-10.8); MONOCYTES # (AUTO) 0.6 10^3/uL (0.0-1.0); MONOCYTES % (AUTO) 7.9 %; NEUTROPHILS # (AUTO) 3.6 10^3/uL (1.5-6.6); NEUTROPHILS % (AUTO) 50.5 %; PLT - PLATELET COUNT 203 10^3/uL (130-450); RED BLOOD COUNT 4.56 10^6/uL (4.20-5.40); RED CELL DISTRIBUTION WIDTH 12.8 % (12.0-15.0); WHITE BLOOD COUNT 7.1 x10^3/uL (4.8-10.8)
[2019-06-24 14:20] LABS: BILIRUBIN,URINE NEGATIVE (NEGATIVE); GLUCOSE, URINE (UA) NEGATIVE (NEGATIVE); KETONES,URINE (UA) TRACE mg/dL (NEGATIVE); LEUKOCYTE ESTERASE, URINE SMALL (NEGATIVE); NITRITE,URINE NEGATIVE (NEGATIVE); OCCULT BLOOD,URINE NEGATIVE (NEGATIVE); PROTEIN,URINE NEGATIVE (NEGATIVE); UROBILINOGEN,URINE 0.2 (NORMAL) E.U./dL (NORMAL)
[2019-06-24 14:21] LABS: CLARITY,URINE HAZY (CLEAR)
[2019-06-24 14:33] LABS: AMORPHOUS SEDIMENT,UR Marked /LPF; BACTERIA,URINE Rare /HPF (None Seen); RBC,URINE None Seen /HPF (0-5); SQUAMOUS EPITHELIAL CELL,UR MOD Squamous (<= Few)
[2019-06-24 14:49] LABS: CALCIUM 11.1 mg/dL (8.5-10.3); CREATININE 0.8 mg/dL (0.4-1.0)
[2019-06-24 15:07] VITALS: BP 144/71
== END 2019-06-24 15:23 | disposition home or self-care (01) ==
LOC: EDUNIT# → ED 13:11
DX: M51.14 Intervertebral disc disorders with radiculopathy, thoracic region (principal); M40.294 Other kyphosis, thoracic region; I10 Essential (primary) hypertension; Z79.82 Long term (current) use of aspirin
CPT/HCPCS: 36415; 80048; 81001; 81003; 85025; 87086; 99283; 99284

== ENCOUNTER 2019-06-25 13:06 | Outpatient (CLI) | payer MEDICARE, OTHER | END 2019-06-25 13:07 | disposition critical access hospital (66) | LOC: EMS 13:06 | PROVIDERS: ATTEND Surgery | DX: R07.9 Chest pain, unspecified (principal) | CPT/HCPCS: A0425; A0429 ==

== ENCOUNTER 2019-06-25 13:20 | Emergency (ER) | payer MEDICARE, OTHER ==
--- NOTE | 2019-06-25 13:29 | ED Physician Documentation ---
PD HPI CHEST PAIN - Stated complaint Stated Complaint: RESOLVED CP - History obtained from History obtained from: Patient - History of Present Illness Timing - onset: Today (83-year-old woman with no known history of coronary disease, last stress was about 5 years ago and negative per her. She does have a pre-existing left bundle branch block and some valvular disease as well as right ventricular hypertrophy. She was seen here yesterday for left-sided abdominal pain. Today starting around noon she was knitting helped substernal chest pressure radiating up to the jaw and the back. It lasted 45 minutes and is now gone. She took aspirin at home prior to arrival.) Review of Systems Ten Systems: 10 systems reviewed and negative Constitutional: denies: Fever, Chills, Fatigue Respiratory: denies: Dyspnea GI: denies: Vomiting, Diarrhea PD PAST MEDICAL HISTORY - Past Medical History Cardiovascular: Hypertension Respiratory: None Endocrine/Autoimmune: HyPOthyroidism GI: None, GERD : None Psych: None Musculoskeletal: None Derm: None - Past Surgical History Past Surgical History: Yes General: Colonoscopy, EGD Ortho: Hip replacement HEENT: Tonsil/Adenoidectomy - Present Medications Home Medications: Ambulatory Orders Medication Instructions Recorded Confirmed Atenolol [Tenormin] 50 mg PO DAILY 08/02/13 11/09/18 Thyroid [[place] Thyroid] 105 mg PO DAILY 08/02/13 11/09/18 amLODIPine [Norvasc] 5 mg PO BID 08/02/13 11/09/18 Ubidecarenone/Vitamin E Mixed 2 cap PO BID 08/05/13 11/09/18 [Coq10 Sg 100 Softgel] hydrOXYzine PAMOATE [Vistaril] 25 mg PO HS PRN 08/05/13 11/09/18 Aspirin [Aspirin EC] 81 mg PO DAILY 01/17/18 11/09/18 Ibuprofen 200 mg PO BID 01/17/18 11/09/18 Naproxen [EC-Naproxen] 375 mg PO DAILY #30 tablet. 06/24/19 - Allergies Allergies/Adverse Reactions: Allergies Allergy/AdvReac Type Severity Reaction Status Date / Time morphine Allergy Severe Hives Verified 06/24/19 13:15 Penicillins Allergy Severe Rash Verified 06/24/19 13:15 adhesive Allergy Unknown unknown Verified 06/24/19 13:15 alendronate sodium Allergy Unknown unknown Verified 06/24/19 13:15 [From Fosamax] doxazosin Allergy Unknown unknown Verified 06/24/19 13:15 hydrocodone bitartrate * Allergy Unknown unknown Verified 06/24/19 13:15 [From Vicodin] Latex, Natural Rubber Allergy Unknown unknown Verified 06/24/19 13:15 Sulfa (Sulfonamide Allergy Unknown Itching Verified 06/24/19 13:15 Antibiotics) lisinopril AdvReac Intermediate cough Verified 06/24/19 13:15 codeine [Codeine] AdvReac Unknown unknown Verified 06/24/19 13:15 lovastatin AdvReac Unknown Dizziness Verified 06/24/19 13:15 - Social History Does the pt smoke?: No Smoking Status: Never smoker Does the pt drink ETOH?: Yes Does the pt have substance abuse?: No - Family History Family history: reports: Non contributory - Immunizations Immunizations are current?: No Immunizations: TDAP current <10years PD ED PE NORMAL - Vitals Vital signs reviewed: Yes - General General: Alert and oriented X 3, No acute distress - HEENT HEENT: PERRL, EOMI - Neck Neck: Supple, no meningeal sign, No bony TTP - Cardiac Cardiac: RRR, No murmur - Respiratory Respiratory: No respiratory distress, Clear bilaterally - Abdomen Abdomen: Normal bowel sounds, Soft, Non tender - Extremities Extremities: No edema, No calf tenderness / cord - Psych Psych: Normal mood, Normal affect Results - Vitals Vitals: Vital Signs - 24 hr 06/25/19 13:22 Temperature 36.7 C Heart Rate 73 Respiratory 18 Rate Blood Pressure 179/90 H O2 Saturation 100 Oxygen O2 Source Room air - EKG (time done) 1331 Rate: Rate (enter#) (67) Rhythm: NSR Intervals: LBBB Computer interpretation: Agree with computer - Labs Labs: Laboratory Tests 06/25/19 06/25/19 06/25/19 13:43 13:43 13:43 WBC 7.2 RBC 4.60 Hgb 14.6 Hct 42.6 MCV 92.6 MCH 31.7 H MCHC 34.3 RDW 12.8 Plt Count 211 MPV 10.4 Neut # (Auto) 3.5 Lymph # (Auto) 2.9 [place] # (Auto) 0.5 Eos # (Auto) 0.2 Baso # (Auto) 0.1 Absolute Nucleated RBC 0.00 Nucleated RBC % 0.0 Sodium 143 Potassium 3.4 L Chloride 102 Carbon Dioxide 26 Anion Gap 15.0 H BUN 18 Creatinine 0.8 Estimated GFR (MDRD) 68 L Glucose 100 Calcium 11.1 H Total Bilirubin 1.5 H AST 33 ALT 29 Alkaline Phosphatase 55 Troponin I High Sens 5.5 Total Protein 7.7 Albumin 4.5 Globulin 3.2 Albumin/Globulin Ratio 1.4 Lipase 39 - Rads (name of study) 1v chest Radiology: EMP read contemporaneously (normal) PD MEDICAL DECISION MAKING - ED course ED course: 83-year-old woman with a resolved episode of chest pain, her EKG has a chronic left bundle branch block with negative Sgarbossa criteria, enzymes are normal an d she remained pain-free throughout her stay. Follow-up for stress testing was advised. Departure - Departure Disposition: Home, Self Care Clinical Impression: Chest pain Qualifiers: Chest pain type: unspecified Qualified Code(s): R07.9 - Chest pain, unspecified Condition: Good Record reviewed to determine appropriate education?: Yes Instructions: ED Chest Pain Atypical Unkn Cause Follow-Up: Oleg Friedman, DO [Provider Admit Priv/Credential] - (Call today to get order for pharmacologic stress) Comments: Continue current medications, return if chest pain recurs. Otherwise follow-up with Dr. Friedman, schedule a stress test.
[2019-06-25 13:48] LABS: BASOPHILS # (AUTO) 0.1 10^3/uL (0.0-0.1); BASOPHILS % (AUTO) 0.7 %; EOSINOPHILS # (AUTO) 0.2 10^3/uL (0.0-0.7); EOSINOPHILS % (AUTO) 3.2 %; HGB - HEMOGLOBIN 14.6 g/dL (12.0-16.0); LYMPHOCYTES # (AUTO) 2.9 10^3/uL (1.5-3.5); LYMPHOCYTES % (AUTO) 40.9 %; MEAN CORPUSCULAR HEMOGLOBIN 31.7 pg (27.0-31.0); MEAN CORPUSCULAR HGB CONC 34.3 g/dL (32.0-36.0); MEAN CORPUSCULAR VOLUME 92.6 fL (81.0-99.0); MEAN PLATELET VOLUME 10.4 fL (7.9-10.8); MONOCYTES # (AUTO) 0.5 10^3/uL (0.0-1.0); MONOCYTES % (AUTO) 6.7 %; NEUTROPHILS # (AUTO) 3.5 10^3/uL (1.5-6.6); NEUTROPHILS % (AUTO) 48.2 %; PLT - PLATELET COUNT 211 10^3/uL (130-450); RED CELL DISTRIBUTION WIDTH 12.8 % (12.0-15.0); WHITE BLOOD COUNT 7.2 x10^3/uL (4.8-10.8)
[2019-06-25 14:02] LABS: ALBUMIN 4.5 g/dL (3.2-5.5); ALBUMIN/GLOBULIN RATIO 1.4 (1.0-2.2); BILIRUBIN,TOTAL 1.5 mg/dL (0.2-1.0); CALCIUM 11.1 mg/dL (8.5-10.3); CREATININE 0.8 mg/dL (0.4-1.0); TOTAL PROTEIN 7.7 g/dL (6.7-8.2)
--- NOTE | 2019-06-25 14:13 | XRAY Report ---
Reason: chest pain Procedure Date: 06/25/2019 Accession Number: [id number] / [id number] Procedure: XR - Chest 1 View X-Ray CPT Code: 36326 FULL RESULT: EXAM: CHEST RADIOGRAPHY EXAM DATE: 06/25/2019 01:45 PM. CLINICAL HISTORY: Sternal chest pain. COMPARISON: CHEST 2 VIEW PA/LAT 04/08/2015 4:33 PM. TECHNIQUE: Upright AP view. FINDINGS: Lungs/Pleura: No interstitial abnormality or pulmonary vascular congestion. Mediastinum: Heart size is normal. There is minimal tortuosity in the descending thoracic aorta, as before. Other: Prior T11 kyphoplasty. Left elbow arthroplasty. IMPRESSION: No evidence of active cardiopulmonary disease. RADIA
[2019-06-25 14:42] VITALS: BP 139/65
== END 2019-06-25 14:53 | disposition home or self-care (01) ==
LOC: EDUNIT# → EDBD → ED 13:20
DX: R07.89 Other chest pain (principal); I44.7 Left bundle-branch block, unspecified; I10 Essential (primary) hypertension; Z79.82 Long term (current) use of aspirin
CPT/HCPCS: 36415; 71045; 80053; 83690; 84484; 85025; 93005; 99284

== ENCOUNTER 2019-09-06 17:19 | Outpatient (CLI) | payer MEDICARE, OTHER | END 2019-09-06 17:20 | disposition critical access hospital (66) | LOC: EMS 17:19 | PROVIDERS: ATTEND Surgery | DX: S69.91XA Unspecified injury of right wrist, hand and finger(s), initial encounter (principal); M25.561 Pain in right knee; W18.09XA Striking against other object with subsequent fall, initial encounter; Y92.038 Other place in apartment as the place of occurrence of the external cause | CPT/HCPCS: A0425; A0427 ==

== ENCOUNTER 2019-09-06 17:37 | Emergency (ER) | payer MEDICARE, OTHER ==
[2019-09-06] MEDS ORDERED: fentaNYL 100 MCG/2 ML VIAL IVP STA ×2 (17:49→18:36)
[2019-09-06] MEDS ORDERED: ceFAZolin 2 GM in SODIUM CHLORIDE 0.9% 100ML 100 ML IV STA (17:49)
[2019-09-06] MEDS ORDERED: SODIUM CHLORIDE 0.9% 1,000 ML IV ONE (17:49)
--- NOTE | 2019-09-06 17:53 | ED Physician Documentation ---
PD HPI UPPER EXT INJURY - Stated complaint Stated Complaint: GLF/ R WRIST - Chief complaint Chief Complaint: Trauma Ext - History obtained from History obtained from: Patient - History of Present Illness Location: Right (Trip and fall in the garage landing wrist forward on concrete injuring the right wrist. Isolated injury. No head or neck injury.) Where injury occurred: Home Timing - onset: Today Pain level max: 10 - Treatment prior to arrival Treatment prior to arrival: Still having a lot of pain despite 150 mcg of fentanyl on the way by EMS Review of Systems Ten Systems: 10 systems reviewed and negative Constitutional: reports: Reviewed and negative Nose: reports: Reviewed and negative Cardiac: reports: Reviewed and negative Respiratory: reports: Reviewed and negative PD PAST MEDICAL HISTORY - Past Medical History Cardiovascular: Hypertension Respiratory: None Endocrine/Autoimmune: HyPOthyroidism GI: None, GERD : None Psych: None Musculoskeletal: None Derm: None - Past Surgical History Past Surgical History: Yes General: Colonoscopy, EGD Ortho: Hip replacement HEENT: Tonsil/Adenoidectomy - Present Medications Home Medications: Ambulatory Orders Medication Instructions Recorded Confirmed Atenolol [Tenormin] 50 mg PO DAILY 08/02/13 11/09/18 Thyroid [[place] Thyroid] 105 mg PO DAILY 08/02/13 11/09/18 amLODIPine [Norvasc] 5 mg PO BID 08/02/13 11/09/18 Ubidecarenone/Vitamin E Mixed 2 cap PO BID 08/05/13 11/09/18 [Coq10 Sg 100 Softgel] hydrOXYzine PAMOATE [Vistaril] 25 mg PO HS PRN 08/05/13 11/09/18 Aspirin [Aspirin EC] 81 mg PO DAILY 01/17/18 11/09/18 Ibuprofen 200 mg PO BID 01/17/18 11/09/18 Naproxen [EC-Naproxen] 375 mg PO DAILY #30 tablet. 06/24/19 - Allergies Allergies/Adverse Reactions: Allergies Allergy/AdvReac Type Severity Reaction Status Date / Time morphine Allergy Severe Hives Verified 09/06/19 17:49 Penicillins Allergy Severe Rash Verified 09/06/19 17:49 adhesive Allergy Unknown unknown Verified 09/06/19 17:49 alendronate sodium Allergy Unknown unknown Verified 09/06/19 17:49 [From Fosamax] doxazosin Allergy Unknown unknown Verified 09/06/19 17:49 hydrocodone bitartrate * Allergy Unknown unknown Verified 09/06/19 17:49 [From Vicodin] Latex, Natural Rubber Allergy Unknown unknown Verified 09/06/19 17:49 Sulfa (Sulfonamide Allergy Unknown Itching Verified 09/06/19 17:49 Antibiotics) lisinopril AdvReac Intermediate cough Verified 09/06/19 17:49 codeine [Codeine] AdvReac Unknown unknown Verified 09/06/19 17:49 lovastatin AdvReac Unknown Dizziness Verified 09/06/19 17:49 - Social History Does the pt smoke?: No Smoking Status: Never smoker Does the pt drink ETOH?: Yes Does the pt have substance abuse?: No - Immunizations Immunizations are current?: No Immunizations: TDAP current <10years PD ED PE NORMAL - Vitals Vital signs reviewed: Yes - General General: Alert and oriented X 3, No acute distress - HEENT HEENT: PERRL, EOMI - Neck Neck: Supple, no meningeal sign, No bony TTP - Cardiac Cardiac: RRR, No murmur - Respiratory Respiratory: No respiratory distress, Clear bilaterally - Abdomen Abdomen: Non tender - Back Back: No CVA TTP, No spinal TTP - Derm Derm: Normal color, Warm and dry - Extremities Extremities: Other (There is a dorsal deformity of the right wrist with a 1 cm laceration on the palmar surface of the right wrist just proximal to the flexor crease consistent with an open fracture) - Neuro Neuro: Alert and oriented X 3, Normal speech - Psych Psych: Normal mood, Normal affect Results - Vitals Vitals: Vital Signs - 24 hr 09/06/19 09/06/19 17:42 18:09 Temperature 36.5 C Heart Rate 85 74 Respiratory 18 16 Rate Blood Pressure 159/80 H 161/93 H O2 Saturation 97 100 Oxygen O2 Source Room air - Rads (name of study) R wrist XR Radiology: EMP read contemporaneously (Comminuted moderately displaced intra- articular distal radial fracture with dorsal angulation and ulnar styloid fracture) Procedures - Splint (location) RUE Splint applied by: Tech Type of splint: Fiberglass, Long arm, Sugar tong Other: Patient tolerated well, No complications, Neurovascular intact PD MEDICAL DECISION MAKING - ED course ED course: Dr. Zepeda saw the patient in the emergency department and went over options which included either washout here with an external fixator and later definitive fixation by hand surgeon or transfer tonight. And after extensive discussions they opted for the latter. Accepted to [facility] by [facility] Lacy were completed. She is stable for transport. Of note she is requiring a fair amount of pain med ication, for the most part getting fentanyl 50 mcg about every half an hour. Departure - Departure Disposition: 02 Transfer Acute Care Hosp Clinical Impression: Open Colles' fracture Qualifiers: Encounter type: initial encounter Open fracture type: open type I or II Laterality: right Qualified Code(s): S52.531B - Colles' fracture of right radius, initial encounter for open fracture type I or II Condition: Fair
--- NOTE | 2019-09-06 18:28 | XRAY Report ---
Reason: wrist inj Procedure Date: 09/06/2019 Accession Number: [id number] / [id number] Procedure: XR - Wrist 3 View RT CPT Code: Final Report FULL RESULT: EXAM: RIGHT WRIST RADIOGRAPHY EXAM DATE: 09/06/2019 06:11 PM. CLINICAL HISTORY: Wrist inj. COMPARISON: HIP BILAT 09/04/2017 10:27 AM. TECHNIQUE: 3 views. FINDINGS: Bones: Osteopenia noted. Comminuted, moderately displaced interarticular distal radial fracture is seen with overall dorsal angulation of the distal fracture fragments. Mildly displaced ulnar styloid fracture also noted. Joints: No subluxations. Soft Tissues: Diffuse soft tissue swelling at the wrist. IMPRESSION: 1. Comminuted, moderately displaced interarticular distal radial fracture is seen with overall dorsal angulation. 2. Mildly displaced ulnar styloid fracture also noted. RADIA
[2019-09-06] MEDS: fentaNYL 100 MCG/2 ML VIAL IVP PRN ×2 (20:34→21:25)
--- NOTE | 2019-09-06 20:37 | CONSULTATION NOTE ---
Referring Provider Name of Referring Provider:: Laci Alexandre MD Consult Date: 09/06/19 Chief Complaint - Chief Complaint Chief Complaint: asked to evaluate for right open distal radius fracture History of Present Illness - History Obtained From History obtained from: Dr. Alexandre, Patient, Daughter, Son - History of Present Illness HPI Comment/Other: Patient is an active and vibrant RHD 83 yo female with hx of htn, who sustained a ground level fall after tripping on a box this evening. She reports right wrist injury, deformity, pain. Says may have "bumped" her knee but not painful. Denies head or neck injury. Denies cv or nv symptoms preceding or after fall. Patient is active and enjoys knitting as her main hobby. She is accompanied by her son Chema from [place], and daughter from [place] who are visiting for the holidays. Patient normally lives alone at [facility]. History - Past Medical History Cardiovascular: reports: Hypertension Respiratory: reports: None Endocrine/Autoimmune: reports: HyPOthyroidism GI: reports: None, GERD : reports: None Psych: reports: None Musculoskeletal: reports: None Derm: reports: None MRSA Hx?: No - Past Surgical History General: reports: Colonoscopy, EGD Ortho: reports: Hip replacement HEENT: reports: Tonsil/Adenoidectomy Meds/Allgy - Home Medications Home Medications: Ambulatory Orders Medication Instructions Recorded Confirmed Atenolol [Tenormin] 50 mg PO DAILY 08/02/13 11/09/18 Thyroid [[place] Thyroid] 105 mg PO DAILY 08/02/13 11/09/18 amLODIPine [Norvasc] 5 mg PO BID 08/02/13 11/09/18 Ubidecarenone/Vitamin E Mixed 2 cap PO BID 08/05/13 11/09/18 [Coq10 Sg 100 Softgel] hydrOXYzine PAMOATE [Vistaril] 25 mg PO HS PRN 08/05/13 11/09/18 Aspirin [Aspirin EC] 81 mg PO DAILY 01/17/18 11/09/18 Ibuprofen 200 mg PO BID 01/17/18 11/09/18 Naproxen [EC-Naproxen] 375 mg PO DAILY #30 tablet. 06/24/19 - Allergies Allergies/Adverse Reactions: Allergies Allergy/AdvReac Type Severity Reaction Status Date / Time morphine Allergy Severe Hives Verified 09/06/19 17:49 Penicillins Allergy Severe Rash Verified 09/06/19 17:49 adhesive Allergy Unknown unknown Verified 09/06/19 17:49 alendronate sodium Allergy Unknown unknown Verified 09/06/19 17:49 [From Fosamax] doxazosin Allergy Unknown unknown Verified 09/06/19 17:49 hydrocodone bitartrate * Allergy Unknown unknown Verified 09/06/19 17:49 [From Vicodin] Latex, Natural Rubber Allergy Unknown unknown Verified 09/06/19 17:49 Sulfa (Sulfonamide Allergy Unknown Itching Verified 09/06/19 17:49 Antibiotics) lisinopril AdvReac Intermediate cough Verified 09/06/19 17:49 codeine [Codeine] AdvReac Unknown unknown Verified 09/06/19 17:49 lovastatin AdvReac Unknown Dizziness Verified 09/06/19 17:49 Exam - Vital Signs Vital Signs: Vital Signs x48h Temp Pulse Resp BP Pulse Ox 09/06/19 18:09 74 16 161/93 H 100 09/06/19 17:42 36.5 C 85 18 159/80 H 97 - Physical Exam Comments/Other: Right upper extremity with blood soaked gauze volar distal forearm. Removed reveals transverse 5-10mm laceration near proximal to wrist crease. significant swelling and apex volar deformity and ecchymosis, demostrates R/M/U motor and sensory function though guarded with any motion at wrist. able to initiate digital flex/ex. cap refill <2sec distally in digits with digits equally warm throughout. unable to palp DR or DU pulse secondary to guarding, swelling and deformity. hand cpts and forearm cpts soft. Conclusion/Plan - Diagnosis Diagnosis: right open distal radius fracture and ulna styloid fracture - Plan Plan: Kristin is an active 83yo RHD female with an open, comminuted, intraarticular distal radius fracture. Patient was seen and examined and injury and treatment options discussed at length with patient and family. Discussed natural hx and potential problems with this injury with and without surgery. Discussed the emergent nature of open fractures. Discussed the complexity of the fracture beyond the open nature of the injury. Offered I&D and ex-fix though not confident that this would adequately treat the intraarticular aspect. Discussed pros/cons of adding percutaneus pinning though this could compromise any later secondary ORIF if inadequate reduction and fixation obtained. Advised that there may be a lower likelihood of adequate reduction and fixation with this method at [facility] versus potential I&D and possible definitive ORIF by hand and wrist specialist, though this would require tranfer to a higher level of care. Outlined the importance of timeliness and answered all questions. Discussed potential aftercare and hybrid scenarios with care elsewhere and potential follow-up here. Patient and both son and daughter verbalized understanding of the r/b/a of the options presented and verbalized wish for transfer to trauma center. This will be facilitated by ED staff and Dr. Alexandre. Patient reportedly already had minor bedside cleaning of wound and will be dressed with dry sterile gauze and placed in a sugar tong splint. Patient already given antibiotics. Immediate transfer initiated. Patient and family to be given contact information for questions, continuity of care, or if we may be of further assistance. - Diagnostic Imaging Results Diagnostic Imaging Results Comments: Right wrist films show comminuted, intraarticular, displaced distal radius and ulna fractures. apex volar angulation with significant shortening.
[2019-09-06 20:52] VITALS: BP 149/74
== END 2019-09-06 21:50 | disposition short-term general hospital (02) ==
LOC: EDUNIT# → ED 17:37
DX: S52.531B Colles' fracture of right radius, initial encounter for open fracture type I or II (principal); S52.611A Displaced fracture of right ulna styloid process, initial encounter for closed fracture; W01.0XXA Fall on same level from slipping, tripping and stumbling without subsequent striking against object, initial encounter; Y92.008 Other place in unspecified non-institutional (private) residence as the place of occurrence of the external cause; I10 Essential (primary) hypertension
CPT/HCPCS: 29105; 80053; 83690; 85025; 85610; 96361; 96365; 96375; 96376

== ENCOUNTER 2019-09-06 21:46 | Outpatient (CLI) | payer MEDICARE, OTHER | END 2019-09-06 21:47 | disposition short-term general hospital (02) | LOC: EMS 21:46 | PROVIDERS: ATTEND Surgery | DX: S62.101B Fracture of unspecified carpal bone, right wrist, initial encounter for open fracture (principal); W18.09XA Striking against other object with subsequent fall, initial encounter | CPT/HCPCS: A0425; A0426 ==